=== PATIENT | male | born 1960 | race Two or more races ===

== ENCOUNTER 2022-07-18 06:30 | Day surgery (SDC) | payer OTHER | END 2022-07-18 16:40 | disposition home or self-care (01) | LOC: AMB-ENDOS 06:30 | PROVIDERS: ATTEND Colon & Rectal Surgery | DX: D12.2 Benign neoplasm of ascending colon (principal); D12.4 Benign neoplasm of descending colon; Z86.010 Personal history of colon polyps ==

== ENCOUNTER 2023-03-28 06:20 | Day surgery (SDC) | payer OTHER | END 2023-03-28 12:15 | disposition home or self-care (01) | LOC: AMB-ENDOS 06:20 | PROVIDERS: ATTEND Colon & Rectal Surgery | DX: K63.5 Polyp of colon (principal); K57.30 Diverticulosis of large intestine without perforation or abscess without bleeding; R19.5 Other fecal abnormalities; K64.8 Other hemorrhoids ==

== ENCOUNTER 2024-01-15 06:15 | Day surgery (SDC) | payer OTHER ==
[2024-01-15] MEDS ORDERED: MIDAZOLAM HCL 2 MG/2 ML VIAL IV ONE (11:15)
[2024-01-15] MEDS ORDERED: DIPHENHYDRAMINE HCL 50 MG/ML VIAL 1ML IV ONE (11:15)
[2024-01-15] MEDS ORDERED: fentaNYL CITRATE 50 MCG/ML AMPUL IV PUSH ONE (11:15)
== END 2024-01-15 13:25 | disposition home or self-care (01) ==
LOC: AMB-ENDOS 06:15
PROVIDERS: ATTEND Colon & Rectal Surgery
DX: K63.5 Polyp of colon (principal); D12.4 Benign neoplasm of descending colon; D12.8 Benign neoplasm of rectum; D12.3 Benign neoplasm of transverse colon; K57.30 Diverticulosis of large intestine without perforation or abscess without bleeding; K64.8 Other hemorrhoids; Z20.822 Contact with and (suspected) exposure to COVID-19